=== PATIENT | male | born 1945 | race Caucasian/White ===

== ENCOUNTER → 2019-04-02 | Outpatient (CLI) | payer MEDICARE ==
--- NOTE | 2019-04-02 13:47 | KCIC ---
CT of the chest without contrast. Low dose lung cancer screening protocol. INDICATION: Lung cancer screening exam. History of tobacco abuse, COPD, 56 pack year history of smoking. COMPARISON STUDY: None available TECHNIQUE: Multidetector CT imaging of the chest was performed using a low-dose lung cancer screening protocol FINDINGS: Heart size is normal. No pericardial effusion is seen. Coronary calcification is seen. Limited noncontrast enhanced evaluation the mediastinum demonstrates scattered small lymph nodes that evidence of pathologically enlarged adenopathy. Limited visualization of the upper abdomen is grossly unremarkable. There is no pneumothorax, pleural effusion, or focal consolidative infiltrate. Centrilobular emphysematous changes are noted. Apical scarring present bilaterally. No acute osseous abnormalities are identified. 4 mm noncalcified nodule, apical left upper lobe adjacent to the area of scarring (thin axial image 38). Multifocal subpleural blebs noted. Basilar bronchiectasis is seen. There is a 1 cm noncalcified nodular opacity in the left lower lobe. This either abuts or bleb, or is within a small cavitary lesion. (Axial image 238). There is a somewhat spiculated nodule in the right upper lung measuring 1 cm in diameter (axial image 83). IMPRESSION: Lung RADS category 4A, suspicious with additional diagnostic testing recommended. Recommend PET/CT to eval the 1 cm lesions in the right upper and left lower lobes, with consideration of biopsy based on results. CT DOSING PQRS STATEMENT: One or more of the following individualized dose reduction techniques were utilized for this examination: 1. Automated exposure control 2. Adjustment of the mA and/or kV according to patient size 3. Use of iterative reconstruction technique Electronically signed by: Korey Gunn MD (04/02/2019 1:44 PM) [id number]
== END | disposition home or self-care (01) ==
LOC: KCIC CT 12:34
PROVIDERS: ATTEND Family Medicine
DX: Z12.2 Encounter for screening for malignant neoplasm of respiratory organs (principal); I25.10 Atherosclerotic heart disease of native coronary artery without angina pectoris; J43.2 Centrilobular emphysema; J98.4 Other disorders of lung; J47.9 Bronchiectasis, uncomplicated; R91.8 Other nonspecific abnormal finding of lung field; F17.210 Nicotine dependence, cigarettes, uncomplicated
CPT/HCPCS: G0297

== ENCOUNTER → 2019-04-24 | Outpatient (CLI) | payer MEDICARE ==
--- NOTE | 2019-04-24 17:36 | RAD ---
Examination: PET W CT SKULL TO MIDTHIGH History: Lung mass Comparison/Correlation: April 02, 2019 CT chest without contrast low dose FINDINGS: Net dose 12.4 mCi F-18 FDG was administered intravenously for purposes of whole body PET/CT exam. Blood glucose level at the time of radiotracer administration was 118 mg/dL. Hepatic reference uptake is SUV max of 2.7 . Uptake of radiotracer is identified involving the left lower external ear inferiorly. There is a 0.6 cm diameter structure at this site which is of intermediate density and may represent a sebaceous cyst. It is well-circumscribed Within the lateral aspect of the right upper lung, there is a 1 cm diameter calcified granuloma. No abnormal uptake at this site. At the left apex, there is a 0.5 cm diameter noncalcified density present. There is no uptake evident on PET imaging although it is below the limits of resolution. At the left posterior lower lung field, there is a 0.9 cm diameter soft tissue density structure without uptake. Emphysematous involvement of the lung jalloh noted. Coronary artery calcifications are normal. Small hiatal hernia is present. Multiple right renal calculi are present primarily at the lower pole measuring up to 0.3 cm diameter. These are nonobstructive. No radiopaque collecting system calculi. Cyst involving the left kidney inferior pole anteriorly is noted. Appendix is normal. No enlarged abdominal or pelvic lymph nodes. Several calculi are present within the dependent aspect of the urinary bladder measuring up to 0.6 cm diameter. Prostatomegaly is present. Bony structures are unremarkable for the patient's age. IMPRESSION: No abnormal uptake of radiotracer corresponding to the left lower lung field pulmonary nodule. Left upper lung field apical nodule is too small for PET resolution and no uptake is evident. Right upper lung field nodule has calcification within it as expected with benign granuloma. Interval follow-up CT exam in 6 months to assess stability is recommended. Renal and urinary bladder nonobstructive calculi. Prostatomegaly. Small focus of uptake involving the left outer ear at its inferior aspect which may represent a sebaceous cyst or other inflammatory process. No aggressive features. Correlate clinically in determining follow-up. PQRS Compliance Statement: One or more of the following individualized dose reduction techniques were utilized for this examination: 1. Automated exposure control 2. Adjustment of the mA and/or kV according to patient size 3. Use of iterative reconstruction technique Electronically signed by: Lucas Crouch MD (04/24/2019 5:33 PM) [facility]
== END | disposition home or self-care (01) ==
LOC: PETSC 10:34
PROVIDERS: ATTEND Internal Medicine Pulmonary Disease
DX: J43.8 Other emphysema (principal); R91.8 Other nonspecific abnormal finding of lung field; N20.0 Calculus of kidney; N40.0 Benign prostatic hyperplasia without lower urinary tract symptoms; K44.9 Diaphragmatic hernia without obstruction or gangrene; J98.4 Other disorders of lung; J84.10 Pulmonary fibrosis, unspecified; Z87.891 Personal history of nicotine dependence
CPT/HCPCS: 78815; A9552

== ENCOUNTER → 2019-10-19 | Outpatient (CLI) | payer MEDICARE ==
--- NOTE | 2019-10-19 11:06 | KCIC ---
CT CHEST WO CONTRAST Indication: Lung nodule, smoker, COPD Technique: Noncontrast CT imaging was performed of the chest, multiplanar reconstruction images submitted. One or more of the following individualized dose reduction techniques were utilized for this examination: 1. Automated exposure control 2. Adjustment of the mA and/or kV according to patient size 3. Use of iterative reconstruction technique. Comparison: April 24, 2019 PET/CT exam and April 02, [address] Findings: There is some motion degradation. There is a persistent spiculated right upper lobe nodule image 43 series 3 about 9 mm AP by 7-8 mm transverse by 8 mm CC versus previously about 7 mm AP by 7 mm transverse by 7-8 mm CC, again some internal mild calcification. There are a couple of new small adjacent right upper lobe nodules, largest about 2 to 3 mm images 29 series 3. There is new small 2 to 3 mm right upper lobe nodule image 50 series 3. There is new 4 to 5 mm right upper lobe nodule image 65. Subpleural left apical nodule image 19 series 3 about 5 to 6 mm is fairly similar. There is a new focus of subpleural left upper lobe nodularity about 4-5 mm images 24 series 3. There is a new small left upper lobe nodule medially image 29 series 3 about 2 to 3 mm. Small 1 to 2 mm left upper lobe nodule image 31 is unchanged. There is a new 3 mm left upper lobe nodule image 90 series 3. 8 mm left lower lobe nodule image 156 series 3 is likely unchanged allowing for motion on both exams. There is coronary calcification. There is no infiltrate, pleural or pericardial fluid, or pneumothorax. There is moderate to severe emphysema. No new significantly enlarged nodes are identified of the chest. IMPRESSION: 1. Previously seen spiculated right upper lobe nodule is somewhat larger and there are some new small pulmonary nodules as stated. While nonspecific, malignancy/metastatic disease in the differential considerations. 2. There is emphysema. 3. There is coronary calcification. Electronically signed by: Scottie Ballard MD (10/19/2019 11:04 AM) [place] [id number]
== END | disposition home or self-care (01) ==
LOC: KCIC CT 10:01
PROVIDERS: ATTEND Internal Medicine Pulmonary Disease
DX: J43.9 Emphysema, unspecified (principal); R91.8 Other nonspecific abnormal finding of lung field
CPT/HCPCS: 71250

== ENCOUNTER → 2020-04-25 | Outpatient (CLI) | payer MEDICARE ==
--- NOTE | 2020-04-25 08:58 | KCIC ---
CT chest without contrast PQRS statement: CT scans at this facility use dose reduction including either automated exposure cont rol, iterative reconstructions, and /or weight based radiation dosing via mA and kV modification when appropriate to reduce radiation dose to as low as reasonably achievable. HISTORY: Pulmonary nodules. History of covid infection March 2020. Tobacco smoker for 50 years. COMPARISON: CT chest October 19, 2019 and priors. FINDINGS: Calcified plaque thoracic aorta and coronary arteries. Heart size normal. Pulmonary vessels and esophagus are unremarkable. No enlarged adenopathy in the chest with subcentimeter mediastinal l ymph nodes which are stable. Pulmonary centrilobular emphysema. Left upper lobe apical 4 mm solid nod ule image 30 stable. There are new extensive groundglass pulmonary opacities throughout the left fron galilea lobe anterior and posterior segments and lingula with lesser peripheral subpleural groundglass op acities of the right upper lobe anterior segment and right lower lobe superior segment. Lingula 4 mm solid nodule image 129 stable. Posterior left lower lobe 8 mm solid nodule within a air cyst image 17 2 stable. Right upper lobe solid nodule with fine spiculations measuring 8 mm image 56 stable. 2 mm n odule right lower lobe image 1 are 95 stable. Tiny calcified granulomas right lung base stable. Bronc hial wall thickening is stable. Bones unremarkable. IMPRESSION: 1. New pulmonary groundglass opacities with extensive involvement of the left upper lobe and lesser i nvolvement of the right upper and lower lobes typical of an infectious or inflammatory process. Given the history of positive Covid 19 infection from March 2020, this likely represents changes of cov id pneumonia as this is atypical pattern with peripheral bilateral groundglass opacities with or with out consolidation or crazy paving, or a reverse halo sign). Other processes such as influenza pneumon ia and organizing pneumonia, as can be seen with drug toxicity and connective tissue disease, can cau se a similar imaging pattern. 2. Solid pulmonary nodules largest is an 8 mm right upper lobe nodule with fine spiculations, stable back to March 2019. Continued follow-up in 3-6 months is advised. 3. Pulmonary emphysema. Electronically signed by: Prashanth Serra MD (04/25/2020 8:56 AM) [id number]
== END ==
LOC: KCIC CT 07:58
PROVIDERS: ATTEND Internal Medicine Pulmonary Disease
DX: R91.1 Solitary pulmonary nodule (principal); J43.9 Emphysema, unspecified; F17.200 Nicotine dependence, unspecified, uncomplicated
CPT/HCPCS: 71250

== ENCOUNTER → 2021-04-14 | Outpatient (CLI) | payer MEDICARE ==
--- NOTE | 2021-04-14 15:46 | KCIC ---
CT of the chest without contrast dated 04/14/2021. COMPARISON: 04/25/2020. CLINICAL INDICATION: Follow-up lung nodule. TECHNIQUE: Contiguous axial imaging the chest performed without the administration of intravenous contrast. One or more of the following individualized dose reduction techniques were utilized for this examinat ion: 1. Automated exposure control 2. Adjustment of the mA and/or kV according to patient size 3. Use of iterative reconstruction technique. FINDINGS: Heart size within normal limits. No pericardial effusion. Coronary artery calcifications. No mediasti nal, hilar or axillary lymphadenopathy. Thyroid gland is unremarkable. Central airways are patent. Diffuse bronchial wall thickening. Mild to moderate emphysema. There is a noncalcified spiculated nodule in the right upper lobe posterior laterally on image 17 that measures 9 mm maximum dimension, unchanged. Noncalcified nodular density in the left apex on image 31 measure s 7 mm, also unchanged. Ovoid nodular focus within a cavity in the left lower lobe posteriorly on kiley ge 175 measures 1.1 cm versus 0.8 cm previously. No new pulmonary nodule or mass. No pleural effusion . Previously described patchy airspace disease in the left upper lobe and right upper lobe has resolv ed. Images of the upper abdomen are unremarkable. There is wall thickening of the distal thoracic esophag us, unchanged. Bone window show no acute finding. Multilevel spondylosis. IMPRESSION: 1. There are multiple noncalcified pulmonary nodules, stable in the right upper lobe and left apex. A nodular density within a cavity in the left lower lobe appears to slightly increased in size and rem ains indeterminate in etiology. Continued follow-up imaging is recommended to ensure stability. 2. Interval improvement in patchy airspace disease in the bilateral upper lobes. 3. Emphysema. 4. Wall thickening of the distal thoracic esophagus, nonspecific but unchanged. Consider acute or chr onic esophagitis. Electronically signed by: Blanco Senior MD (04/14/2021 3:44 PM) [facility]
== END ==
LOC: KCIC CT 10:51
PROVIDERS: ATTEND Internal Medicine Pulmonary Disease
DX: R91.8 Other nonspecific abnormal finding of lung field (principal); J43.9 Emphysema, unspecified; K22.89 Other specified disease of esophagus; I25.10 Atherosclerotic heart disease of native coronary artery without angina pectoris; J98.09 Other diseases of bronchus, not elsewhere classified; M47.819 Spondylosis without myelopathy or radiculopathy, site unspecified; Z86.16 Personal history of COVID-19
CPT/HCPCS: 71250

== ENCOUNTER → 2021-10-06 | Outpatient (CLI) | payer MEDICARE ==
--- NOTE | 2021-10-06 14:16 | KCIC ---
CT scan of the chest without contrast 10/06/2021 CLINICAL HISTORY: Lung nodule. TECHNIQUE: Unenhanced, contiguous, 0.625 mm axial sections were obtained through the chest and upper abdomen. 5 mm and 1.5 mm reconstructed axial and 3 mm sagittal and coronal reconstructed images were obtained. One or more of the following individualized dose reduction techniques were utilized for this study: 1. Automated exposure control. 2. Adjustment of the mA and/or kV according to patient size. 3. Use of iterative reconstruction technique. FINDINGS: Comparison study is dated 04/14/2021. Atherosclerotic calcification of the thoracic aorta and its branches is noted. The thoracic aorta tap ers normally. Scattered coronary artery calcifications are seen. The heart is borderline enlarged. No hilar, mediastinal or axillary lymphadenopathy is noted. Mild to moderate bullous emphysematous changes are seen involving both lungs. Areas of scarring are s een involving the apices of both lungs. An irregular partially calcified nodular opacity is seen invo lving the right upper lobe (image 60 of series 6) which measures 1.1 cm in size. This is unchanged. A 7 mm nodular opacity is seen involving the apex of the left upper lobe (image 33 of series 6). This is unchanged. A nodular opacity is seen involving the left lower lobe which measures 8 mm in greatest diameter. There is a surrounding air containing cystic cavity with a thickened wall (image 180 of se galen 6). This measures 1.4 cm in greatest diameter. These findings have not significantly changed. No new pulmonary nodule is seen. No area of consolidation is noted. No pneumothorax or pleural effusion is seen. Images through the upper abdomen demonstrate atherosclerotic calcification abdominal aorta. Degenerat thu changes are seen involving the thoracic spine. IMPRESSION: Stable CT appearance of the nodular opacities involving both lungs as discussed above. No acute abnormality is seen. Electronically signed by: Jamison Hilliard MD (10/06/2021 2:14 PM) [id number]
== END ==
LOC: KCIC CT 10:33
PROVIDERS: ATTEND Internal Medicine Pulmonary Disease
DX: R91.8 Other nonspecific abnormal finding of lung field (principal); I70.0 Atherosclerosis of aorta; I25.10 Atherosclerotic heart disease of native coronary artery without angina pectoris; J43.9 Emphysema, unspecified; M47.814 Spondylosis without myelopathy or radiculopathy, thoracic region
CPT/HCPCS: 71250